=== PATIENT | female | born 1960 | race Hispanic/Latino ===

== ENCOUNTER 2016-10-02 13:11 | Outpatient (CLI) | payer OTHER ==
--- NOTE | 2016-10-02 15:32 | RAD ---
KUB: Date: 10-02-16 Comparison: None. History: Kidney pain for several days. FINDINGS: Stool is seen throughout the colon, particularly the ascending colon and transverse colon regions. There are two faint calcific densities in the left upper quadrant just superior to the left 12th rib measuring up to 3 mm, which may signify small left renal calculi. There are pelvic calcifications bilaterally, measuring up to approximately 4 mm, which could represent vascular calcifications or ur eteral calculi in the proper clinical setting. If there is clinical concern for nephrolithiasis or obstructive uropathy, CT advised. IMPRESSION: Calcifications within the left upper quadrant and in the pelvis as detailed above. POS: REMIGIO
== END 2016-10-02 13:12 | disposition home or self-care (01) ==
LOC: MADRAD 13:11
PROVIDERS: ATTEND Nurse Practitioner Family
DX: N23 Unspecified renal colic (principal)
CPT/HCPCS: 74000